=== PATIENT | male | born 1960 | race African-American/Black ===

== ENCOUNTER 2025-03-31 12:05 | Outpatient (CLI) | payer MEDICARE, MEDICAID | END 2025-03-31 12:06 | disposition home or self-care (01) | LOC: CSHCP 12:05 | PROVIDERS: ATTEND Internal Medicine | DX: J44.9 Chronic obstructive pulmonary disease, unspecified (principal) | CPT/HCPCS: 94060; 94664; 94726; 94729; 94760 ==